=== PATIENT | female | born 1955 | race Caucasian/White ===

== ENCOUNTER 2020-02-26 10:09 | Emergency (ER) | payer OTHER ==
[2020-02-26] MEDS ORDERED: Ondansetron 4 MG Tab.DIS PO ONE (10:35)
[2020-02-26] MEDS ORDERED: Acetaminophen/oxyCODONE 325-5 MG Tab PO ONE (10:35)
--- NOTE | 2020-02-26 10:35 | EDM.PDOC ---
ED HPI GENERAL MEDICAL PROBLEM - General Chief Complaint: Lower Extremity Injury/Pain Stated Complaint: L KNEE PAIN/SWELLING Time Seen by Provider: 02/26/20 10:30 Source of Information: Reports: Patient History Limitations: Reports: No Limitations - History of Present Illness INITIAL COMMENTS - FREE TEXT/NARRATIVE: 64-year-old female presents to the ED for evaluation of left knee pain. Patient reports that she fell out of her work chair about 4 days ago when she was reaching for an object on the floor. She landed very hard on her left knee. However she can get up and walk fairly normally after the injury. Yesterday afternoon while traveling in motor vehicle as a passenger she developed left knee pain which has progressively worsened to the point that it kept her awake all last night. Patient can barely weight-bear today due to the intensity of the pain. She states pain is 9 out of 10. She has no history of gout or pseudogout. She has a history of intermittent swelling of the left knee presumably due to underlying osteoarthritic changes but she is never had the knee x-rayed. She has taken Tylenol for pain this morning without any relief. Did attend the walk-in clinic at [place] and was referred to the ED for further evaluation due to being on Plavix. Onset: Gradual Onset Date: 02/25/20 Onset Time: 15:00 Duration: Hour(s):, Constant, Getting Worse Location: Reports: Lower Extremity, Left (Left knee pain) Quality: Reports: Ache, Throbbing Severity: Moderate Improves with: Reports: Rest Worsens with: Reports: Other (With weightbearing.) Context: Reports: Trauma (Mild trauma when she fell on her knees from the seated position 4 days ago. She could get up and walk fairly normally after injury. P ain started yesterday i.e. 2-1/2 days post injury.). 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 Left Knee Pain Score (Numeric/FACES): 8 - Related Data Allergies Allergy/AdvReac Type Severity Reaction Status Date / Time No Known Allergies Allergy Verified 02/26/20 10:25 Home Meds: Home Meds Aspirin [Aspirin EC] 81 mg PO DAILY 02/26/20 [History] Clopidogrel [Plavix] 75 mg PO DAILY 02/26/20 [History] Metoprolol Succinate 1 tab PO DAILY 02/26/20 [History] Nitroglycerin 0.4 mg PO ASDIRECTED PRN 02/26/20 [History] atorvaSTATin [Lipitor] 1 tab PO DAILY 02/26/20 [History] oxyCODONE HCl/Acetaminophen [Percocet 5-325 mg Tablet] 1 - 2 each PO Q4H PRN #12 tablet 02/26/20 [Rx] predniSONE [Prednisone] 20 mg PO ASDIRECTED #15 tablet 02/26/20 [Rx] Past Medical History Cardiovascular History: Reports: CAD, High Cholesterol, Hypertension, MA (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 Denies: Shortness of Breath, Wheezing, Pleuritic Chest Pain Cardiovascular: Reports: No Symptoms. Denies: Chest Pain, Edema, Irregular Heart Rate GI/Abdominal: Reports: No Symptoms Genitourinary: Reports: Other (Urinary frequency.) Musculoskeletal: Reports: Back Pain, Joint Pain (Minimal problems with low back pain) Skin: Reports: Bruising (This is easily due to being on Plavix and baby aspirin. Currently bruising left proximal calf and medial proximal tibia.) Neurological: Reports: No Symptoms Psychiatric: Reports: No Symptoms ED EXAM, GENERAL - Physical Exam Exam: See Below Exam Limited By: No Limitations General Appearance: Alert, WD/WN, Mild Distress, Other (Temperature is 36.7 with a heart rate of 68 respiratory is 20 with O2 sats of 97% on room air BP 147/74.) Respiratory/Chest: No Respiratory Distress, Lungs Clear, Normal Breath Sounds, No Accessory Muscle Use Cardiovascular: Normal Peripheral Pulses, Regular Rate, Rhythm, No Edema, No Gallop, No Murmur, No Rub Peripheral Pulses: 2+: Posterior Tibial (L), Posterior Tibial (R), Dorsalis Pedis (L), Dorsalis Pedis (R), 3+: Carotid (L), Carotid (R) Extremities: Normal Inspection, No Pedal Edema, Other (Examination of the left lower extremity and the right right 1 is completely normal. The left does show a effusion probably 50-75 mils. There is ecchymoses of the proximal medial and posterior calf musculature which is minimally tender. The calf musculature itself is flaccid and nontender with no clinical evidence of DVT. This would be highly unlikely since she has not missed any doses of her Plavix or aspirin. Clinically I suspect pseudogout or gout crystals have deposited in the joint. The joint is only mildly inflamed or warm to palpation. Significant reduction in range of motion however due to pain. No clinical evidence of a quadriceps tear.) Neurological: Alert, Oriented, CN II-XII Intact, Normal Cognition Psychiatric: Normal Affect, Normal Mood Skin Exam: Warm, Dry, Intact, Normal Color Course - Vital Signs Last Recorded V/S: Last Vital Signs Temp 36.7 C 02/26/20 10:19 Pulse 68 02/26/20 10:19 Resp 20 02/26/20 10:19 BP 147/74 H 02/26/20 10:19 Pulse Ox 97 02/26/20 10:19 - Orders/Labs/Meds Orders: Active Orders 24 hr Category Date Time Status Knee 3V Lt [CR] Stat Exams 02/26/20 10:35 Taken Meds: Medications Discontinued Medications Generic Name Dose Route Start Last Admin Trade Name Daniela PRN Reason Stop Dose Admin Ondansetron HCl 4 mg 02/26/20 10:35 02/26/20 10:54 Zofran Odt PO 02/26/20 10:36 4 mg ONETIME ONE Administration Oxycodone/Acetaminophen 2 tab 02/26/20 10:35 02/26/20 10:53 Percocet 325-5 Mg PO 02/26/20 10:36 2 tab ONETIME ONE Administration Prednisone 30 mg 02/26/20 11:10 02/26/20 11:20 Prednisone PO 02/26/20 11:11 30 mg ONETIME ONE Administration - Radiology Interpretation Free Text/Narrative:: 64-year-old female presents to the ED with acute onset of left knee and power- knee pain starting yesterday afternoon while traveling in her vehicle as a passenger from [place]. Pain started approximately 1500 hrs. yesterday afternoon and became progressively worse over a period of 3 to 4 hours and has stayed fairly intense. It hardly let her sleep last night due to constant throbbing pain and no position being comfortable. This morning she could not even put on her own close due to the severity of the pain and requires assistance and weightbearing. She was seen at the walk-in clinic initially and concern was raised about possibility of blood clot in her leg. Clinically this is not evident as the calf is very flaccid. She also has some bruising in the proximal medial and posterior calf from the fall she sustained 4 days ago. Mild effusion less than 50 mils in the left knee. Plan x-ray of the knee to be do ne. Percocet tablet 5/325 mg p.o. given p.o. with Zofran 4 mg sublingual. - Re-Assessments/Exams Free Text/Narrative Re-Assessment/Exam: 02/26/20 11:15: X-rays of the left knee reveal some degenerative arthritic changes and some calcium deposition in the lateral meniscus compatible with chondrocalcinosis. There are no fractures of the patella or the distal femur or tib-fib. I suspect current pain syndrome is secondary to crystal deposition within the knee either gout or pseudogout. I suspect the latter it is more likely to cause inflammation of the knee joint. Because she is on Plavix she cannot take NSAIDs. She will therefore be placed on prednisone starting with 30 mg in the ED and then to take 20 mg tonight before bed with food. Then to take twice daily for the next 4-1/2 days and then 1 tablet in the morning only for 5 days to clear up inflammation left knee. She will follow-up with her personal care provider as needed. Departure - Departure Time of Disposition: 11:19 Disposition: Home, Self-Care 01 Condition: Fair Clinical Impression: Pseudogout Knee pain, left Qualifiers: Chronicity: acute Qualified Code(s): M25.562 - Pain in left knee - Discharge Information *PRESCRIPTION DRUG MONITORING PROGRAM REVIEWED*: Not Applicable *COPY OF PRESCRIPTION DRUG MONITORING REPORT IN PATIENT LINDY: Not Applicable Prescriptions: oxyCODONE HCl/Acetaminophen [Percocet 5-325 mg Tablet] 1 - 2 each PO Q4H PRN #12 tablet PRN Reason: pain relief. predniSONE [Prednisone] 20 mg PO ASDIRECTED #15 tablet Referrals: PCP,Not In Area [Primary Care Provider] - Forms: ED Department Discharge Additional Instructions: Evaluation in the emergency room today in regards to development of significant left knee pain yesterday afternoon while traveling from [place]. History of fall and injury to the knee 4 days ago without significant problems walking after injury. Examination reveals a swelling or effusion(collection of fluid) within the left knee. Normal patellofemoral (kneecap) articulation. Rays of the knees show some [id number] arthritis and some deposition of calcium in the cartilage of the knee. There are no bony injuries or fractures. Suspect pseudogout which means crystals of Droxia apatite crystals have settled within the joint which often occurs after minor trauma causing acute inflammation and severe pain. Normally we would treat you with nonsteroidal anti-inflammatories but you cannot take these medications while you are on Plavix. Therefore you will be placed on prednisone 20 mg twice daily with breakfast and supper with the first tablet due bedtime tonight with a little something in your stomach. First dose was given in the ED today. Take twice daily for 5 days and then once daily in the morning only for another 5 days. Expect marked improvement over the next 24 to 48 hours with approximately 80 to 90% improvement in pain in the left knee joint. May also take pain medication Percocet 5/325 mg 1 every 4-6 hours necessary for pain relief for the next couple of days until the prednisone becomes effective. Suggest follow-up with your personal care physician particularly if not markedly improved or resurgence of symptoms after the prednisone is finished. Sepsis Event Note (ED) - Evaluation Sepsis Screening Result: No Definite Risk - Focused Exam Vital Signs: Vital Signs Temp Pulse Resp BP Pulse Ox 02/26/20 10:19 36.7 C 68 20 147/74 H 97 - My Orders Last 24 Hours: My Active Orders 02/26/20 10:35 Knee 3V Lt [CR] Stat - Assessment/Plan Last 24 Hours: My Active Orders 02/26/20 10:35 Knee 3V Lt [CR] Stat
[2020-02-26] MEDS ORDERED: predniSONE 20 MG Tab PO ONE (11:10)
--- NOTE | 2020-02-26 11:59 | CR ---
Left knee: AP, lateral and sunrise patellar views of the left knee were obtained. Comparison: No previous knee study. Slight osteophytes off the patella are seen. Small joint effusion is seen. There is fairly severe cartilage loss and narrowing within the lateral patellofemoral joint. Slight decreased density within the subchondral bone of the lateral patellofemoral joint along the tibial side is seen most likely degenerative in etiology. Impression: 1. Degenerative change primarily within the lateral patellofemoral joint. 2. Small joint effusion. 3. No acute bony abnormality is appreciated. Diagnostic code #2 This report was dictated in MDT
== END 2020-02-26 11:47 | disposition home or self-care (01) ==
LOC: JD.ED 10:09
DX: M11.262 Other chondrocalcinosis, left knee (principal); I10 Essential (primary) hypertension; I25.10 Atherosclerotic heart disease of native coronary artery without angina pectoris; E78.00 Pure hypercholesterolemia, unspecified; Z95.5 Presence of coronary angioplasty implant and graft; Z79.82 Long term (current) use of aspirin; Z79.02 Long term (current) use of antithrombotics/antiplatelets; Z79.899 Other long term (current) drug therapy
CPT/HCPCS: 73562; 99283; A9270; J7512